=== PATIENT | female | born 1970 | race Caucasian/White ===

== ENCOUNTER 2022-01-06 06:42 | Emergency (ER) | payer SELFPAY ==
[~2022-01-06] VITALS: Ht 167.6 cm; Wt 60.9 kg
[2022-01-06 06:50] VITALS: TEMP 97.7
[2022-01-06 08:18] VITALS: BP 123/63; PULSE 63
== END 2022-01-06 08:18 | disposition home or self-care (01) ==
LOC: COL.ER 06:42
DX: M54.2 Cervicalgia (principal); R07.89 Other chest pain; Z28.310 Unvaccinated for COVID-19; V43.62XA Car passenger injured in collision with other type car in traffic accident, initial encounter; Y92.410 Unspecified street and highway as the place of occurrence of the external cause